=== PATIENT | male | born 1970 | race Caucasian/White ===

== ENCOUNTER 2021-12-13 22:21 | Emergency (ER) | payer OTHER ==
[~2021-12-13 22:21] MED LIST: ASPIRIN CHEWABL81 MG PO
[2021-12-13 23:21] LABS: RED BLOOD COUNT 4.41 M/UL (4.20-5.50); WHITE BLOOD COUNT 11.7 K/UL (4.5-11.0)
[2021-12-13 23:40] LABS: BUN/CREATININE RATIO 11 (0-10)
== END 2021-12-14 03:17 | disposition home or self-care (01) ==
LOC: ER1 22:21
PROVIDERS: Student in an Organized Health Care Education/Training Program
DX: R07.9 Chest pain, unspecified (principal); R06.02 Shortness of breath; I51.9 Heart disease, unspecified; E78.5 Hyperlipidemia, unspecified; Z88.8 Allergy status to other drugs, medicaments and biological substances
CPT/HCPCS: 71045; 80053; 82550; 82553; 84484; 85025; 85379; 93005; 96374; 99285; J1885

== ENCOUNTER 2022-01-13 09:17 | Emergency (ER) | payer OTHER ==
[2022-01-13 09:48] LABS: HEMOGLOBIN 14.7 gm/dl (14.0-17.5); RED BLOOD COUNT 4.57 M/UL (4.20-5.50); WHITE BLOOD COUNT 11.3 K/UL (4.5-11.0)
[2022-01-13 10:15] LABS: BUN/CREATININE RATIO 9 (0-10)
[2022-01-13] MEDS ORDERED: PERCOCET 10-321 EACH PO (13:21)
[2022-01-13] MEDS ORDERED: FLOMAX 0.4 MG0.4 MG PO (13:21)
[2022-01-13] MEDS ORDERED: ZOFRAN ODT 4 MG4 MG SL (13:21)
[2022-01-13] MEDS ORDERED: TORADOL 10 MG T10 MG PO (13:21)
== END 2022-01-13 14:16 | disposition home or self-care (01) ==
LOC: ER1 09:17
PROVIDERS: Emergency Medicine
DX: N13.2 Hydronephrosis with renal and ureteral calculous obstruction (principal); I51.9 Heart disease, unspecified; Z88.8 Allergy status to other drugs, medicaments and biological substances
CPT/HCPCS: 80053; 81001; 83690; 85025; 96374; 96375; 96376; 99284; J1170; J1885